=== PATIENT | male | born 1955 ===

== ENCOUNTER 2022-04-20 07:43 | Day surgery (SDC) | payer OTHER ==
[~2022-04-20] VITALS: Ht 167.6 cm; Wt 76.7 kg
[2022-04-20] MEDS ORDERED: diphenhydrAMINE 50 MG/ML VIAL ONE (09:10)
[2022-04-20] MEDS ORDERED: MIDAZOLAM 5 MG/5 ML VIAL ONE (09:10)
[2022-04-20] MEDS ORDERED: fentaNYL citrate 0.05 MG/ML VIAL ONE (09:10)
[2022-04-20] MEDS ORDERED: diphenhydrAMINE 50 MG/ML VIAL IVP ONE (10:20)
[2022-04-20] MEDS ORDERED: fentaNYL citrate 0.05 MG/ML VIAL IVP ONE (10:20)
[2022-04-20] MEDS ORDERED: MIDAZOLAM 2 MG/2 ML VIAL IVP ONE (10:20)
== END 2022-04-20 11:04 | disposition home or self-care (01) ==
LOC: MDS 07:43 → MMU 07:43 → MDS 11:04
PROVIDERS: ATTEND Internal Medicine Gastroenterology
DX: K21.9 Gastro-esophageal reflux disease without esophagitis (principal); K29.70 Gastritis, unspecified, without bleeding; K31.89 Other diseases of stomach and duodenum; I10 Essential (primary) hypertension; E78.00 Pure hypercholesterolemia, unspecified; Z88.0 Allergy status to penicillin; Z79.899 Other long term (current) drug therapy; Z98.890 Other specified postprocedural states; Z20.822 Contact with and (suspected) exposure to COVID-19
CPT/HCPCS: 43239; 87426; 88305; 88312; 88313; 88342; J1200; J2250; J3010